=== PATIENT | female | born 1965 | race Two or more races ===

== ENCOUNTER 2023-03-12 11:33 | Emergency (ER) | payer BC ==
[~2023-03-12] VITALS: Ht 152.4 cm; Wt 79.4 kg
[2023-03-12] MEDS ORDERED: VYVANSE10 MG PO (12:18)
[2023-03-12 15:09] LABS: HEMATOCRIT 37.1 % (36.0-45.00); HEMOGLOBIN 12.5 g/dL (12.0-15.00); MEAN CELL VOLUME 92.4 fL (80.00-100.00); MEAN CORPUSCULAR HGB CONC 33.6 g/dl (32.0-36.0); PLATELET COUNT 217 K/uL (150-450); RED BLOOD COUNT 4.01 M/uL (4.00-6.00); RED CELL DISTRIBUTION WIDTH 12.4 % (11.5-14.5)
[2023-03-12] MEDS ORDERED: ZITHROMAX500 MG PO (15:38)
[2023-03-12] MEDS ORDERED: TUSNEL LIQUID178 ML PO (15:38)
== END 2023-03-12 14:32 | disposition home or self-care (01) ==
LOC: ER 11:34
PROVIDERS: General Practice
DX: B34.9 Viral infection, unspecified (principal); Z20.822 Contact with and (suspected) exposure to COVID-19